=== PATIENT | female | born 1965 | race African-American/Black ===

== ENCOUNTER 2017-07-04 11:09 | Emergency (ER) | payer OTHER ==
[~2017-07-04] VITALS: Ht 160 cm; Wt 52.2 kg
[2017-07-04] MEDS ORDERED: IBUPROFEN600 MG ORAL (11:46)
[2017-07-04] MEDS ORDERED: ROBAXIN-750750 MG PO (11:46)
[2017-07-04 12:08] VITALS: BP 128/83
[2017-07-04 12:16] LABS: BILIRUBIN, URINE NEGATIVE (NEGATIVE); COLOR,URINE PALE YELLOW; GLUCOSE, URINE (UA) NEGATIVE (NEGATIVE); KETONES,URINE NEGATIVE (NEGATIVE); LEUKOCYTE ESTERASE ,URINE NEGATIVE (NEGATIVE); NITRITE,URINE NEGATIVE (NEGATIVE); PH,URINE 7 (4.5-8.0); PROTEIN,URINE NEGATIVE (NEGATIVE); UROBILINOGEN,URINE NORMAL MG/DL (0.0-1.0)
[2017-07-04 12:20] LABS: APPEARANCE,URINE SLIGHTLY CLOUDY
--- NOTE | 2017-07-04 12:22 | Emergency Room Report ---
History of Present Illness General Chief Complaint: Pain Source: Patient Present Illness HPI 51-year-old female p/w back pain for 3 months ain is localized to right lower back, sharp in nature, radiating down leg. Movement worsens pain. Occurs intermittently. There are no alleviating factors. Also states that she has been urinating more than normal however no dysuria no hematuria no abnormal vaginal discharge Patient has experienced this similar pain in the past. Denies trauma. Denies lower extremity weakness/numbness, no bowel/bladder retention or incontinence, saddle anesthesia. Denies fever, chills, abdominal pain, n/v, dysuria/hematuria. No history of IVDA Allergies: Coded Allergies: PENICILLINS (Verified Allergy, Unknown, 07/04/17) Patient History Past Medical History: see triage record Past Surgical History: none Pertinent Family History: none Reviewed Nursing Documentation: PMH: Agreed; PSxH: Agreed Nursing Documentation-PM Past Medical History: No History, Except For Hx Asthma: Yes Review of Systems All Other Systems: negative except mentioned in HPI Physical Exam Vital Signs Date Time Temp Pulse Resp B/P (MAP) Pulse Ox O2 Delivery O2 Flow Rate FiO2 07/04/17 11:19 98.2 68 20 128/83 99 Room Air 98.2 Sp02 EP Interpretation: reviewed, normal General Appearance: normal inspection, well appearing, no apparent distress, alert, GCS 15, non-toxic Head: normocephalic, atraumatic Eyes: bilateral eye normal inspection, bilateral eye PERRL, bilateral eye EOMI ENT: normal ENT inspection, normal pharynx, normal voice, moist mucus membranes Neck: normal inspection, full range of motion, supple Respiratory: normal inspection, lungs clear, normal breath sounds, no respiratory distress, no retraction, no wheezing, speaking full sentences, chest symmetrical Cardiovascular #1: normal inspection, regular rate, rhythm, no edema, normal capillary refill Cardiovascular #2: 2+ radial (R), 2+ radial (L) Gastrointestinal: normal inspection, non tender, soft, non-distended, no guarding Musculoskeletal: other - Mild right-sided paraspinal lower lumbar tenderness no midline tenderness, full range of motion all extremities Neurologic: normal inspection, alert, oriented x3, responsive, motor strength/ tone normal, sensory intact, normal gait, speech normal Psychiatric: normal inspection, judgement/insight normal, memory normal Skin: normal inspection, normal color, no rash, warm/dry, well hydrated, normal turgor Medical Decision Making Diagnostic Impression: Primary Impression: Chronic back pain ER Course 51-year-old female with chronic back pain for 3 months DDX: Likely musculoskeletal back pain vs. muscular strain vs. sciatica Serious diagnoses such as cord compression, epidural abscess is unlikely in this patient given the clinical scenario and abscess of neurological symptoms or findings. Patient appears nontoxic. Plan: None ER course: Patient has remained nontoxic appearing and ambulatory in the ED. Disposition: Patient will be discharged to home with prescription of motrin and robaxin. Patient cautioned of the effects of robaxin including possible impairment of physical or mental abilities. Patient was instructed to refrain from operating machinery or driving. Strict precautions discussed with patient on when to emergently return to the ED which includes severe/worsening back pain, leg weakness/numbness, urinary retention/incontinence, fever or chills, which may indicate severe illness. Patient is to follow up with their PMD within 5 days. Patient agrees with plan. Please note that this Emergency Department Report was dictated using [employer] operations associate technology software, occasionally this can lead to erroneous entry secondary to interpretation by the dictation equipment. Last Vital Signs Date Time Temp Pulse Resp B/P (MAP) Pulse Ox O2 Delivery O2 Flow Rate FiO2 07/04/17 11:19 98.2 68 20 128/83 99 Room Air 98.2 Disposition: HOME, SELF-CARE Condition: Stable Scripts Methocarbamol* (ROBAXIN-750*) 750 Mg Tablet 750 MG PO QID, #28 TAB 0 Refills Prov: Catarina Rice M.D. 07/04/17 Ibuprofen* (MOTRIN*) 600 Mg Tablet 600 MG ORAL Q8H PRN for For Pain, #30 TAB 0 Refills Prov: Catarina Rice M.D. 07/04/17 Referrals: [facility] (PCP) Patient Instructions: Back Pain, Adult, [id number] Catarina Rice M.D. Jul 04, 2017 12:22
[2017-07-04 12:26] VITALS: BP 124/76
== END 2017-07-04 12:28 | disposition home or self-care (01) ==
LOC: EMR 11:51
DX: M54.5 Low back pain (principal); G89.29 Other chronic pain; Z88.0 Allergy status to penicillin
CPT/HCPCS: 81003; 81025; 99284

== ENCOUNTER 2017-10-11 18:28 | Emergency (ER) | payer OTHER ==
[~2017-10-11] VITALS: Ht 160 cm; Wt 52.2 kg
[~2017-10-11 18:28] MED LIST: IBUPROFEN600 MG ORAL; ROBAXIN-750750 MG PO
[2017-10-11 18:47] VITALS: BP 114/78
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
[2017-10-11] MEDS ORDERED: LIDODERM700 M1 TOPIC (20:01)
[2017-10-11] MEDS ORDERED: SOMA250 MG PO (20:01)
[2017-10-11] MEDS ORDERED: IBUPROFEN600 MG ORAL (20:01)
[2017-10-11] MEDS ORDERED: ROBAXIN500 MG PO (20:01)
[2017-10-11 20:10] VITALS: BP 119/74
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
== END 2017-10-11 20:10 | disposition home or self-care (01) ==
LOC: EMR 18:49
DX: S16.1XXA Strain of muscle, fascia and tendon at neck level, initial encounter (principal); M54.41 Lumbago with sciatica, right side; V43.52XA Car driver injured in collision with other type car in traffic accident, initial encounter; Y92.410 Unspecified street and highway as the place of occurrence of the external cause; Z88.0 Allergy status to penicillin; J45.909 Unspecified asthma, uncomplicated
CPT/HCPCS: 72040; 99283

== ENCOUNTER 2019-07-29 18:17 | Emergency (ER) | payer OTHER ==
[~2019-07-29] VITALS: Ht 160 cm; Wt 63.5 kg
[~2019-07-29 18:17] MED LIST changes: +LIDODERM700 M1 TOPIC; +REGLAN10 M1 ORAL; +ROBAXIN500 MG PO; +SOMA250 MG PO
--- NOTE | 2019-07-29 18:40 | NUR ---
ED Nurse Note: patient walked into ED from home c/o right knee swelling since 07/27/19. patient also reports right thigh pain. patient denies any recent injury.
--- NOTE | 2019-07-29 18:47 | Emergency Room Report ---
History of Present Illness General Chief Complaint: Lower Extremity Injury Source: Patient Present Illness HPI Patient is a 53-year-old female presents after increased right-sided knee swelling. Reports having onset of symptoms with the past 2 to 3 days. Denies any recent trauma. Denies any fever or vaginal discharge. States that she had gradually worsening of the discomfort to the right knee area. Worse with movement. Denies any recent injury. Reports having some prior history of asthma. Denies any prior history of ulcer disease. She does report drinking alcohol but denies any change in alcohol intake. Allergies: Coded Allergies: PENICILLINS (Verified Allergy, Unknown, 07/04/17) COVID-19 Screening Contact w/high risk pt: No Recent Travel to affected area: No Experienced COVID-19 symptoms?: No COVID-19 Testing performed NETWORK PROGRAMMER: No Patient History Past Medical History: see triage record Last Menstrual Period: last weeek Now: No Reviewed Nursing Documentation: PMH: Agreed; PSxH: Agreed Nursing Documentation-PMH Past Medical History: No History, Except For Hx Cardiac Problems: Yes - murmur Hx Asthma: Yes Review of Systems All Other Systems: negative except mentioned in HPI Physical Exam Vital Signs Date Time Temp Pulse Resp B/P (MAP) Pulse Ox O2 Delivery O2 Flow Rate FiO2 07/29/19 18:31 98.4 66 20 132/78 (96) 97 Room Air Sp02 EP Interpretation: reviewed, normal General Appearance: normal inspection, well appearing, no apparent distress, alert, GCS 15, non-toxic Head: atraumatic ENT: normal ENT inspection, hearing grossly normal, normal voice Neck: normal inspection, full range of motion, supple, no bony tend Respiratory: normal inspection, lungs clear, normal breath sounds, no respiratory distress, no retraction, no wheezing Cardiovascular #1: regular rate, rhythm, no edema Gastrointestinal: normal inspection, normal bowel sounds, non tender, soft, no guarding, no hernia Genitourinary: no CVA tenderness Musculoskeletal: normal inspection, back normal, normal range of motion Neurologic: alert, responsive, speech normal, normal inspection Psychiatric: normal inspection, judgement/insight normal, mood/affect normal Medical Decision Making Diagnostic Impression: Primary Impression: Arthritis of knee, right ER Course Patient presented for right knee pain. Differential diagnosis include was not limited to arthritis, septic joint, gout, Suma's syndrome among others.. Laboratory testing was ordered to evaluate for possible gout. Patient does not appear to have any evidence of septic joint. Patient's knee does have some significant swelling without evidence of warmth or erythema. Ligaments appear to be stable. was noted to be ambulatory without assistance. Patient be discharged home. She will be given prescription for nonsteroidal anti- inflammatory medications. She is advised to follow-up with her primary care physician for recheck. Last Vital Signs Date Time Temp Pulse Resp B/P (MAP) Pulse Ox O2 Delivery O2 Flow Rate FiO2 07/29/19 18:31 98.4 66 20 132/78 (96) 97 Room Air Status: improved Disposition: HOME, SELF-CARE Condition: Stable Hans Argueta MD July 29, 2019 18:47
[2019-07-29] MEDS ORDERED: IBUPROFEN600 M1 ORAL (18:53)
[2019-07-29] MEDS ORDERED: FAMOTIDINE20 MG ORAL (18:53)
--- NOTE | 2019-07-29 19:18 | NUR ---
HAND-OFF: Report given to Yelena Otero RN..
[2019-07-29 19:25] VITALS: BP 132/78
--- NOTE | 2019-07-29 19:25 | NUR ---
ER DISCHARGE NOTE: Patient is cleared to be discharged per ERMD, pt is aox4, on room air, with stable vital signs. pt was given dc and prescription instructions, pt was able to verbalize understanding, pt id band removed without complications. pt is able to ambulate with steady gait. pt took all belongings.
--- NOTE | 2019-07-30 09:07 | Diagnostic Imaging Report ---
EXAM: X-RAY XRAY Knee 3v R CLINICAL HISTORY: Knee pain. COMPARISON: None FINDINGS: Total of 3 views of the right knee were obtained. Alignment is anatomic. There is no fracture, bony lesions or erosions. Joint spaces are unremarkable. Surrounding soft tissue is normal. IMPRESSION: NO FRACTURE.
== END 2019-07-29 19:25 | disposition home or self-care (01) ==
LOC: EMR 18:40
DX: M17.11 Unilateral primary osteoarthritis, right knee (principal); Z88.0 Allergy status to penicillin
CPT/HCPCS: 36415; 84550; 99283

== ENCOUNTER → 2019-08-23 | Emergency (ER) | payer OTHER ==
[~2019-08-23] VITALS: Ht 162.6 cm; Wt 65.8 kg
[~2019-08-23] MED LIST changes: +FAMOTIDINE20 MG ORAL; +IBUPROFEN600 M1 ORAL; +MECLIZINE HCL25 MG ORAL; +Meclizine 25mg tab ORAL ONE
--- NOTE | 2019-08-23 22:04 | Emergency Room Report ---
History of Present Illness General Chief Complaint: Dizziness Source: Patient Present Illness HPI This is a 53-year-old female with a history of vertigo and tinnitus. She is chronically taking meclizine. She is been out for the last couple days. She said symptoms worsen because of it. Complaint of dizziness and ringing in her left ear. Even though she claimed that she is dizzy she was able to drive here without any problem. No nausea no vomiting. No fever chills. Never had any follow-up with neurologist. Work-up including blood work and CT head have been negative. Allergies: Coded Allergies: PENICILLINS (Verified Allergy, Unknown, 07/04/17) COVID-19 Screening Contact w/high risk pt: No Recent Travel to affected area: No Experienced COVID-19 symptoms?: No COVID-19 Testing performed CANDLE MOLDER: No Patient History Past Medical History: see triage record, old chart reviewed Past Surgical History: none Pertinent Family History: none Social History: Denies: smoking Last Menstrual Period: current Now: No Immunizations: other Reviewed Nursing Documentation: PMH: Agreed; PSxH: Agreed Nursing Documentation-PMH Hx Cardiac Problems: Yes - murmur Hx Asthma: Yes Review of Systems Eye: Denies: eye pain, blurred vision ENT: Denies: ear pain, nose congestion, throat swelling Respiratory: Denies: cough, shortness of breath Cardiovascular: Denies: chest pain, palpitations Gastrointestinal: Denies: abdominal pain, diarrhea, nausea, vomiting Musculoskeletal: Denies: back pain, joint pain Skin: Denies: rash Neurological: Reports: dizziness; Denies: headache, numbness Endocrine: Denies: increased thirst, increased urine Hematologic/Lymphatic: Denies: easy bruising All Other Systems: negative except mentioned in HPI Physical Exam Vital Signs Date Time Temp Pulse Resp B/P (MAP) Pulse Ox O2 Delivery O2 Flow Rate FiO2 08/23/19 21:38 98.8 61 16 153/87 (109) 100 Room Air Vitals with high blood pressure Sp02 EP Interpretation: reviewed, normal General Appearance: well appearing, no apparent distress, alert Head: normocephalic, atraumatic Eyes: bilateral eye PERRL, bilateral eye EOMI ENT: hearing grossly normal, normal pharynx Neck: full range of motion, supple, no meningismus Respiratory: chest non-tender, lungs clear, normal breath sounds Cardiovascular #1: regular rate, rhythm, no murmur Gastrointestinal: normal bowel sounds, non tender, no mass, no organomegaly, no bruit, non-distended Musculoskeletal: back normal, normal range of motion, gait/station normal Psychiatric: mood/affect normal Medical Decision Making Diagnostic Impression: Primary Impression: Dizziness of unknown cause ER Course This patient presents with dizziness. No focal deficit indicate TIA or CVA. No evidence of bleed or neoplastic process. Will discharge home. Last Vital Signs Date Time Temp Pulse Resp B/P (MAP) Pulse Ox O2 Delivery O2 Flow Rate FiO2 08/23/19 21:38 98.8 61 16 153/87 (109) 100 Room Air Status: improved Disposition: HOME, SELF-CARE Condition: Stable Scripts Meclizine Hcl* (MECLIZINE*) 25 Mg Tablet 25 MG ORAL THREE TIMES A DAY, #60 TAB Prov: Wiliam Gardner MD 08/23/19 Patient Instructions: Dizziness Additional Instructions: Follow-up with your doctor in 7 days. You may need a referral to see a neurologist. Return if symptoms worsen. Wiliam Gardner MD Aug 23, 2019 22:04
[2019-08-23 22:13] VITALS: BP 138/72
== END | disposition home or self-care (01) ==
LOC: EMR 22:10
DX: R42 Dizziness and giddiness (principal); H93.12 Tinnitus, left ear; Z88.0 Allergy status to penicillin
CPT/HCPCS: 99282